=== PATIENT | female | born 1945 | race Hispanic/Latino ===

== ENCOUNTER 2017-04-21 10:46 | Outpatient (CLI) | payer MEDICARE ==
--- NOTE | 2017-04-21 14:18 | Mammography Report ---
BILATERAL DIGITAL SCREENING MAMMOGRAM with CAD: 04/21/17 10:46:00 CLINICAL: Baseline screening. FINDINGS: There are bilateral scattered areas of fibroglandular density.No mass, architectural distortion or suspicious calcifications. IMPRESSION: No mammographic evidence of malignancy. BI-RADS CATEGORY: 1 -- Negative RECOMMENDATION: Routine mammographic screening in one year. COMMENT: Patient follow-up letters are generated by our [employer] application.
== END 2017-04-21 10:47 | disposition home or self-care (01) ==
LOC: SPVWC 10:46
PROVIDERS: ATTEND Internal Medicine
DX: Z12.31 Encounter for screening mammogram for malignant neoplasm of breast (principal)
CPT/HCPCS: 77067; G0202

== ENCOUNTER 2018-03-17 07:18 | Outpatient (CLI) | payer MEDICARE ==
--- NOTE | 2018-03-17 09:04 | Cat Scan Report ---
CT CHEST WITHOUT CONTRAST INDICATION: History of pulmonary embolism. COMPARISON: None similar. FINDINGS: Noncontrast chest CT suggests normal heart size. No effusions. Few atherosclerotic coronary and aortic calcifications. No aortic aneurysm. Assessment of the great vessels and for detecting subtle lymphadenopathy limited due to lack of IV contrast. Few small right paratracheal lymph nodes measure up to 0.8 cm. No definite significant axillary lymphadenopathy. Patent central airway. Normal imaged thyroid. Tiny, 2 mm right lower lobe calcified granuloma, axial image 90. Minimal right upper lobe scarring. Few small bilateral upper lobe peripheral emphysematous bullae anteriorly, axial image 31. Mild nonspecific distal esophageal wall prominence/thickening, not excluded for gastroesophageal reflux and/or hiatal hernia, amongst others. Bilateral renal cysts, approximately 3.6 cm on the left posteromedially and 0.8 cm at the right upper renal pole. Numerous small pancreatic head calcifications. Couple of small hepatic calcified granulomas. Demineralized bones with mild multilevel spinal degenerative spurring. CONCLUSION: No acute chest CT abnormality on this limited, unenhanced exam with various incidental findings as old healed granulomatous disease, atherosclerotic calcifications, bilateral renal cysts and chronic pancreatitis, amongst others, as detailed above. Please also correlate clinically and note that pulmonary embolism evaluation is suboptimal without IV contrast. Thank you for the opportunity to participate in this patient's care.
--- NOTE | 2018-03-17 17:12 | Magnetic Resonance Report ---
FINAL REPORT EXAM: MR LUMBAR SPINE WO CON HISTORY: LOW BACK PAIN/POSTPROCEDURAL ACUTE CHRONIC KIDNEY FAILURE TECHNIQUE: MRI examination of the lumbar spine without IV contrast PRIORS: None. FINDINGS: Numbering for this exam assumes that there are 5 non-rib bearing lumbar vertebral bodies. Recommend correlation with lumbar x-rays to ensure accurate vertebral numbering prior to consideration of surgery or other lumbar intervention in this patient. Simple appearing bilateral renal cysts. Benign-appearing perineural cyst at S2. Conus medullaris signal and position: Normal Marrow signal changes adjacent to the following disc levels, likely from degenerative disc disease: L4-5 Bone marrow edema: Slight adjacent to the L4-5 disc likely from active phase of degenerative disc disease Vertebral compression fracture: None Anterolisthesis: None Retrolisthesis: None Disc narrowing: L4-5 slight Diffuse disc bulge: L4-5 slight Focal disc protrusion: None Central canal stenosis: L2-3 slight, L3-4 minimal, L4-5 slight Lateral recess stenosis: L4-5 moderate bilateral, There is multilevel degenerative hypertrophic changes at the facet joints and vertebral endplates. Along with disc bulge, these contribute to neural foraminal stenosis. Right neural foraminal stenosis: L4-5 slight, L5-S1 minimal Left neural foraminal stenosis: L4-5 moderate, L5-S1 minimal IMPRESSION: Bone marrow edema adjacent to L5-S1 narrowed disc likely reflects active phase of degenerative disc disease L4-5 disc narrowing, diffuse disc bulge, central canal stenosis, lateral recess stenosis, and neural foraminal stenosis Slight central canal stenosis at L2-3 and L3-4 Minimal neural foraminal stenosis at L5-S1 bilaterally
== END 2018-03-17 07:19 | disposition home or self-care (01) ==
LOC: CT 07:18
PROVIDERS: ATTEND Internal Medicine
DX: M48.07 Spinal stenosis, lumbosacral region (principal); M46.04 Spinal enthesopathy, thoracic region; M51.36 Other intervertebral disc degeneration, lumbar region; M51.26 Other intervertebral disc displacement, lumbar region; I70.0 Atherosclerosis of aorta; J84.10 Pulmonary fibrosis, unspecified; J98.4 Other disorders of lung; J43.8 Other emphysema; N28.1 Cyst of kidney, acquired; K75.3 Granulomatous hepatitis, not elsewhere classified; M81.0 Age-related osteoporosis without current pathological fracture; N99.0 Postprocedural (acute) (chronic) kidney failure; G96.19 Other disorders of meninges, not elsewhere classified; Z86.711 Personal history of pulmonary embolism
CPT/HCPCS: 71250; 72148

== ENCOUNTER 2019-03-06 08:21 | Outpatient (CLI) | payer MEDICARE ==
[2019-03-06 10:17] LABS: Chol/HDL Ratio 3.14 %
== END 2019-03-06 08:22 | disposition home or self-care (01) ==
LOC: EDBD → LAB 08:21
PROVIDERS: ATTEND Internal Medicine
DX: E78.5 Hyperlipidemia, unspecified (principal); E03.0 Congenital hypothyroidism with diffuse goiter; I10 Essential (primary) hypertension; I26.99 Other pulmonary embolism without acute cor pulmonale; R73.09 Other abnormal glucose
CPT/HCPCS: 36415; 80061; 83036; 84132; 84443

== ENCOUNTER 2019-04-24 12:23 | Outpatient (CLI) | payer MEDICARE ==
--- NOTE | 2019-04-24 16:04 | Mammography Report ---
BILATERAL DIGITAL SCREENING MAMMOGRAM with CAD: 04/24/19 12:23:00 CLINICAL: Routine screening. COMPARISON:04/21/17 FINDINGS: The breasts are almost entirely fatty. No mass, architectural distortion or suspicious calcifications. IMPRESSION: No mammographic evidence of malignancy. BI-RADS CATEGORY: 1 - - Negative RECOMMENDATION: Routine mammographic screening in one year. COMMENT: Patient follow-up letters are generated by our [employer] application.
== END 2019-04-24 12:24 | disposition home or self-care (01) ==
LOC: MAMMO 12:23 → EDBD 12:23 → MAMMO 12:24
PROVIDERS: ATTEND Internal Medicine
DX: Z12.31 Encounter for screening mammogram for malignant neoplasm of breast (principal)
CPT/HCPCS: 77067

== ENCOUNTER 2019-06-19 08:11 | Outpatient (CLI) | payer MEDICARE ==
[2019-06-19 11:15] LABS: Chol/HDL Ratio 2.49 %
== END 2019-06-19 08:12 | disposition home or self-care (01) ==
LOC: LAB 08:11
PROVIDERS: ATTEND Internal Medicine
DX: E03.9 Hypothyroidism, unspecified (principal); E78.5 Hyperlipidemia, unspecified; R73.03 Prediabetes
CPT/HCPCS: 36415; 80061; 83036; 84443

== ENCOUNTER 2019-11-27 11:09 | Outpatient (CLI) | payer MEDICARE ==
[2019-11-27 11:08] LABS: Basophils # (Auto) 0.1 K/mm3 (0.0-0.1); Basophils % (Auto) 1.1 % (0.0-1.8); Eosinophils # (Auto) 0.1 K/mm3 (0.0-0.4); Eosinophils % (Auto) 2.1 % (0.0-4.3); Hematocrit 40.2 % (30.3-42.9); Hemoglobin 13.4 gm/dl (10.1-14.3); Lymphocytes # (Auto) 2.6 K/mm3 (1.2-5.4); Lymphocytes % (Auto) 44.9 % (13.4-35.0); Mean Corpuscular HGB Conc 33 % (30-34); Mean Corpuscular Volume 94 fl (79-97); Monocytes # (Auto) 0.4 K/mm3 (0.0-0.8); Monocytes % (Auto) 7.5 % (0.0-7.3); Platelet Count 283 K/mm3 (140-440); Red Blood Count 4.27 M/mm3 (3.65-5.03); Red Cell Distribution Width 13.9 % (13.2-15.2)
[2019-11-27 11:35] LABS: Albumin 4.4 g/dL (3.9-5); Calcium 9.7 mg/dL (8.4-10.2)
--- NOTE | 2019-11-27 12:37 | XRay Report ---
CLINICAL DATA: PAIN IN LEFT ELBOW TECHNICAL DATA: 4 views of the elbow were obtained, AP, lateral, obliques FINDINGS: There is no acute fracture or dislocation. There is visualization of the anterior humeral fat pad. Th is is no consistent with a joint effusion. The radial head articulates normally with the capitellum a nd the ulna articulates normally with the trochlea. No obvious fractures identified. IMPRESSION: 1. There is no convincing acute fracture detected at this time. Signer Name: Hebert Daigle MD Signed: 11/27/2019 12:33 PM Workstation Name: [id number]
[2019-11-27 16:25] LABS: Chol/HDL Ratio 2.74 %
== END 2019-11-27 11:10 | disposition home or self-care (01) ==
LOC: EDBD 11:09 → XRAY 11:09
PROVIDERS: ATTEND Internal Medicine
DX: M25.522 Pain in left elbow (principal); E78.5 Hyperlipidemia, unspecified; R73.03 Prediabetes; Z13.21 Encounter for screening for nutritional disorder; Z00.00 Encounter for general adult medical examination without abnormal findings; Z79.899 Other long term (current) drug therapy
CPT/HCPCS: 36415; 80053; 80061; 82607; 83036; 84443; 85025

== ENCOUNTER 2020-08-17 10:23 | Observation (INO) | payer MEDICARE ==
[2020-08-17] MEDS ORDERED: ONDANSETRON 4 MG/2 ML INJ IV ONE (10:57)
[2020-08-17] MEDS ORDERED: fentaNYL 100 MCG/2 ML INJ IV ONE (10:57)
[2020-08-17] MEDS ORDERED: NITROGLYCERIN 2% OINT 1 GM TP ONE (10:57)
--- NOTE | 2020-08-17 11:01 | Emergency Department Report ---
HPI - General Chief Complaint: Dyspnea/Respdistress Time Seen by Provider: 08/17/20 10:37 - HPI HPI: Room 21 The patient is a 75-year-old female present with a chief complaint of shortness of breath and chest pain. Patient states her shortness of breath began yesterday. Patient states she has had a cough productive of orange-colored sputum. The patient states last night she developed chest pressure feeling as though there was a week pushing on her chest. She states the chest pressure would come and go and was associated also with shortness of breath but denies nausea/vomiting or diaphoresis. Patient denies history of fever or known COVID positive patient contact. Patient currently gives her chest heaviness a score of 2/10. Patient states she had a normal stress test this year but her last cardiac catheterization occurred over 5 years ago. ED Past Medical Hx - Past Medical History Previous Medical History?: Yes Hx Pulmonary Embolism: Yes (2017) Hx COPD: Yes (No home O2) Additional medical history: Benign cyst to left kidney - Surgical History Past Surgical History?: Yes Additional Surgical History: Right ankle - Family History Family history: no significant - Social History Smoking Status: Current Every Day Smoker (1 pack/day) Substance Use Type: None (Denies illicit drug use) ED Review of Systems ROS: Stated complaint: NELI Other details as noted in HPI Constitutional: denies: diaphoresis, fever Respiratory: shortness of breath Cardiovascular: chest pain Endocrine: no symptoms reported Gastrointestinal: denies: nausea, vomiting Physical Exam - Physical Exam Vital Signs: Vital Signs 08/17/20 10:30 Pulse Rate 77 Respiratory 24 Rate O2 Sat by Pulse 96 Oximetry Physical Exam: GENERAL: The patient is well-developed well-nourished female sitting on stretcher occasionally coughing. [] HEENT: Normocephalic. Atraumatic. Extraocular motions are intact. Patient has moist mucous membranes. NECK: Supple. Trachea midline CHEST/LUNGS: Clear to auscultation. There is no respiratory distress noted. Occasional cough HEART/CARDIOVASCULAR: Regular. There is no tachycardia. There is no gallop rub or murmur. ABDOMEN: Abdomen is soft, nontender. Patient has normal bowel sounds. There is no abdominal distention. SKIN: There is no rash. There is no diaphoresis. NEURO: The patient is awake, alert, and oriented. The patient is cooperative. The patient has normal speech MUSCULOSKELETAL: There is no evidence of acute injury. ED Course Vital Signs 08/17/20 10:30 Pulse Rate 77 Respiratory 24 Rate O2 Sat by Pulse 96 Oximetry ED Medical Decision Making - Lab Data Result diagrams: 08/17/20 11:30 08/17/20 11:30 Laboratory Tests 08/17/20 08/17/20 08/17/20 11:30 11:30 11:30 WBC 10.8 RBC 3.97 Hgb 12.7 Hct 37.9 MCV 96 MCH 32 MCHC 34 RDW 13.8 Plt Count 269 Lymph % (Auto) 14.9 Cobb % (Auto) 7.1 Eos % (Auto) 0.8 Baso % (Auto) 0.4 Lymph # (Auto) 1.6 Cobb # (Auto) 0.8 Eos # (Auto) 0.1 Baso # (Auto) 0.0 Seg Neutrophils % 76.8 H Seg Neutrophils # 8.3 H PT 14.8 INR 1.15 H APTT 31.1 D-Dimer 244.05 H Sodium 141 Potassium 4.3 Chloride 104.3 Carbon Dioxide 25 Anion Gap 16 BUN 19 H Creatinine 1.1 Estimated GFR 48 BUN/Creatinine Ratio 17 Glucose 146 H Lactic Acid Calcium 8.8 Ferritin Total Bilirubin 0.20 AST 9 ALT 8 Alkaline Phosphatase 80 Lactate Dehydrogenase Total Creatine Kinase 88 CK-MB (CK-2) 2.0 CK-MB (CK-2) Rel Index 2.2 Troponin T < 0.010 C-Reactive Protein NT-Pro-B Natriuret Pep 259.5 Total Protein 6.4 Albumin 4.2 Albumin/Globulin Ratio 1.9 08/17/20 08/17/20 08/17/20 11:30 11:30 11:30 WBC RBC Hgb Hct MCV MCH MCHC RDW Plt Count Lymph % (Auto) Cobb % (Auto) Eos % (Auto) Baso % (Auto) Lymph # (Auto) Cobb # (Auto) Eos # (Auto) Baso # (Auto) Seg Neutrophils % Seg Neutrophils # PT INR APTT D-Dimer Sodium Potassium Chloride Carbon Dioxide Anion Gap BUN Creatinine Estimated GFR BUN/Creatinine Ratio Glucose Lactic Acid 2.30 H* Calcium Ferritin 20.1 Total Bilirubin AST ALT Alkaline Phosphatase Lactate Dehydrogenase 199 H Total Creatine Kinase CK-MB (CK-2) CK-MB (CK-2) Rel Index Troponin T C-Reactive Protein 0.70 NT-Pro-B Natriuret Pep Total Protein Albumin Albumin/Globulin Ratio - EKG Data -: EKG Interpreted by Me EKG shows normal: sinus rhythm Rate: normal - EKG Data When compared to previous EKG there are: previous EKG unavailable Interpretation: nonspecific ST-T wave dean (Biphasic T wave in V2) - Radiology Data Radiology results: report reviewed (Chest x-ray), image reviewed (Chest x-ray) interpreted by me: Chest x-ray-no focal infiltrates, no pneumothorax, no foreign body seen [facility] [address] [place] [address] XRay Report Signed Patient: JIM ZULUAGA MR#: [id number] 8 : 1945 Acct:[id number] Age/Sex: 75 / F ADM Date: 08/17/20 Loc: ED Attending Dr: Ordering Physician: DORETHA LAWSON MD Date of Service: 08/17/20 Procedure(s): XR chest 1V ap Accession Number(s): [id number] cc: DORETHA LAWSON MD Fluoro Time In Minutes: CHEST 1 VIEW 08/17/2020 10:22 AM INDICATION / CLINICAL INFORMATION: chest pain, cough. COMPARISON: CT chest dated 03/17/2018. FINDINGS: SUPPORT DEVICES: None. HEART / MEDIASTINUM: No significant abnormality. LUNGS / PLEURA: No significant pulmonary or pleural abnormality. No pneumothorax. ADDITIONAL FINDINGS: No significant additional findings. IMPRESSION: No acute cardiopulmonary abnormality. Signer Name: Pravin Mora MD Signed: 08/17/2020 11:06 AM Workstation Name: [id number] Transcribed By: SS Dictated By: PRAVIN MORA Electronically Authenticated By: PRAVIN MORA Signed Date/Time: 08/17/20 110 DD/ 110 TD/TT: - Differential Diagnosis ACS, pericarditis, GERD, COPD exacerbation, COVID-19, bronchitis Critical care attestation.: If time is entered above; I have spent that time in minutes in the direct care of this critically ill patient, excluding procedure time. ED Disposition Clinical Impression: Chest pressure, Cough, Shortness of breath Disposition: OP ADMIT IP TO THIS HOSP Is pt being admited?: Yes Does the pt Need Aspirin: No Condition: Fair Time of Disposition: 12:40 (Hospitalist paged)
--- NOTE | 2020-08-17 11:11 | XRay Report ---
CHEST 1 VIEW 08/17/2020 10:22 AM INDICATION / CLINICAL INFORMATION: chest pain, cough. COMPARISON: CT chest dated 03/17/2018. FINDINGS: SUPPORT DEVICES: None. HEART / MEDIASTINUM: No significant abnormality. LUNGS / PLEURA: No significant pulmonary or pleural abnormality. No pneumothorax. ADDITIONAL FINDINGS: No significant additional findings. IMPRESSION: No acute cardiopulmonary abnormality. Signer Name: Gucci Mora MD Signed: 08/17/2020 11:06 AM Workstation Name: [id number]
[2020-08-17 11:47] LABS: Basophils % (Auto) 0.4 % (0.0-1.8); Eosinophils # (Auto) 0.1 K/mm3 (0.0-0.4); Eosinophils % (Auto) 0.8 % (0.0-4.3); Hematocrit 37.9 % (30.3-42.9); Hemoglobin 12.7 gm/dl (10.1-14.3); Lymphocytes # (Auto) 1.6 K/mm3 (1.2-5.4); Lymphocytes % (Auto) 14.9 % (13.4-35.0); Mean Corpuscular HGB Conc 34 % (30-34); Mean Corpuscular Volume 96 fl (79-97); Monocytes # (Auto) 0.8 K/mm3 (0.0-0.8); Monocytes % (Auto) 7.1 % (0.0-7.3); Platelet Count 269 K/mm3 (140-440); Red Blood Count 3.97 M/mm3 (3.65-5.03); Red Cell Distribution Width 13.8 % (13.2-15.2)
[2020-08-17 12:03] LABS: INR 1.15 (0.87-1.13)
[2020-08-17 12:04] LABS: Partial Thromboplastin Time 31.1 Sec. (24.2-36.6)
[2020-08-17 12:15] LABS: C-Reactive Protein 0.7 mg/dL (0.00-1.30)
[2020-08-17 12:16] LABS: Alanine Aminotransferase 8 units/L (7-56); Albumin 4.2 g/dL (3.9-5); BUN/Creatinine Ratio 17; Blood Urea Nitrogen 19 mg/dL (7-17); Calcium 8.8 mg/dL (8.4-10.2); Hemolysis Index 1
--- NOTE | 2020-08-17 16:29 | History and Physical Report ---
History of Present Illness Date of examination: 08/17/20 Date of admission: 08/17/20 13:00 Chief complaint: Shortness of breath History of present illness: 75-year-old female with a medical history of PE on xarelto, Hypothyroidism presenting to the ED with a chief complaint of shortness of breath and chest pain. Her shortness of breath began yesterday. Patient states she has had a cough productive of orange-colored sputum. The patient states last night she developed chest pressure. She states the chest pressure would come and go and was associated also with shortness of breath but denies nausea/vomiting or diaphoresis. Patient denies history of fever or known COVID positive patient contact. Patient states she had a normal stress test this year but her last cardiac catheterization occurred over 5 years ago. Past History Past Medical History: hypothyroidism, pulmonary embolism Medications and Allergies Allergies Allergy/AdvReac Type Severity Reaction Status Date / Time aspirin [From Norgesic] Allergy Hives Verified 08/17/20 11:04 caffeine [From Norgesic] Allergy Hives Verified 08/17/20 11:04 codeine Allergy Unknown Verified 08/17/20 11:04 magnesium Allergy UPSET Verified 08/17/20 11:04 STOMACH orphenadrine [From Norgesic] Allergy Hives Verified 08/17/20 11:04 Home Medications Medication Instructions Recorded Confirmed Last Taken Type Levothyroxine [Synthroid] 50 mcg PO QAM 08/17/20 08/17/20 Unknown History Nitroglycerin [Nitrostat] 0.4 mg SL Q5M PRN 08/17/20 08/17/20 Unknown History Pantoprazole [Protonix] 40 mg PO QDAY 08/17/20 08/17/20 Unknown History Rivaroxaban [Xarelto] 20 mg PO QDAY 08/17/20 08/17/20 Unknown History Rosuvastatin Calcium 10 mg PO DAILY 08/17/20 08/17/20 Unknown History Exam - Constitutional Vitals: Temp Pulse Resp BP Pulse Ox 71 17 133/52 95 08/17/20 14:00 08/17/20 14:00 08/17/20 14:00 08/17/20 14:00 General appearance: Present: no acute distress, well-nourished - EENT Eyes: Present: PERRL ENT: hearing intact, clear oral mucosa - Neck Neck: Present: supple, normal ROM - Respiratory Respiratory effort: normal Respiratory: bilateral: CTA - Cardiovascular Heart Sounds: Present: S1 & S2. Absent: rub, click - Extremities Extremities: pulses symmetrical, No edema Peripheral Pulses: within normal limits - Abdominal General gastrointestinal: Present: soft, non-tender, non-distended, normal bowel sounds Female genitourinary: Present: normal - Integumentary Integumentary: Present: clear, warm, dry - Musculoskeletal Musculoskeletal: gait normal, strength equal bilaterally - Psychiatric Psychiatric: appropriate mood/affect, intact judgment & insight - Neurologic Neurologic: CNII-XII intact, moves all extremities HEART Score - HEART Score Troponin: Troponin T < 0.010 ng/mL (0.00-0.029) 08/17/20 11:30 Results - Labs CBC & Chem 7: 08/17/20 11:30 08/17/20 11:30 Labs: Laboratory Last Values WBC 10.8 K/mm3 (4.5-11.0) 08/17/20 11:30 RBC 3.97 M/mm3 (3.65-5.03) 08/17/20 11:30 Hgb 12.7 gm/dl (10.1-14.3) 08/17/20 11:30 Hct 37.9 % (30.3-42.9) 08/17/20 11:30 MCV 96 fl (79-97) 08/17/20 11:30 MCH 32 pg (28-32) 08/17/20 11:30 MCHC 34 % (30-34) 08/17/20 11:30 RDW 13.8 % (13.2-15.2) 08/17/20 11:30 Plt Count 269 K/mm3 (140-440) 08/17/20 11:30 Lymph % (Auto) 14.9 % (13.4-35.0) 08/17/20 11:30 [place] % (Auto) 7.1 % (0.0-7.3) 08/17/20 11:30 Eos % (Auto) 0.8 % (0.0-4.3) 08/17/20 11:30 Baso % (Auto) 0.4 % (0.0-1.8) 08/17/20 11:30 Lymph # (Auto) 1.6 K/mm3 (1.2-5.4) 08/17/20 11:30 [place] # (Auto) 0.8 K/mm3 (0.0-0.8) 08/17/20 11:30 Eos # (Auto) 0.1 K/mm3 (0.0-0.4) 08/17/20 11:30 Baso # (Auto) 0.0 K/mm3 (0.0-0.1) 08/17/20 11:30 Seg Neutrophils % 76.8 % (40.0-70.0) H 08/17/20 11:30 Seg Neutrophils # 8.3 K/mm3 (1.8-7.7) H 08/17/20 11:30 PT 14.8 Sec. (12.2-14.9) 08/17/20 11:30 INR 1.15 (0.87-1.13) H 08/17/20 11:30 APTT 31.1 Sec. (24.2-36.6) 08/17/20 11:30 D-Dimer 244.05 ng/mlDDU (0-234) H 08/17/20 11:30 Sodium 141 mmol/L (137-145) 08/17/20 11:30 Potassium 4.3 mmol/L (3.6-5.0) 08/17/20 11:30 Chloride 104.3 mmol/L (98-107) 08/17/20 11:30 Carbon Dioxide 25 mmol/L (22-30) 08/17/20 11:30 Anion Gap 16 mmol/L 08/17/20 11:30 BUN 19 mg/dL (7-17) H 08/17/20 11:30 Creatinine 1.1 mg/dL (0.6-1.2) 08/17/20 11:30 Estimated GFR 48 ml/min 08/17/20 11:30 BUN/Creatinine Ratio 17 % 08/17/20 11:30 Glucose 146 mg/dL (65-100) H 08/17/20 11:30 Lactic Acid 2.30 mmol/L (0.7-2.0) H* 08/17/20 11:30 Calcium 8.8 mg/dL (8.4-10.2) 08/17/20 11:30 Ferritin 20.1 ng/mL (10.0-200.0) 08/17/20 11:30 Total Bilirubin 0.20 mg/dL (0.1-1.2) 08/17/20 11:30 AST 9 units/L (5-40) 08/17/20 11:30 ALT 8 units/L (7-56) 08/17/20 11:30 Alkaline Phosphatase 80 units/L (35-129) 08/17/20 11:30 Lactate Dehydrogenase 199 units/L (91-180) H 08/17/20 11:30 Total Creatine Kinase 88 units/L (30-135) 08/17/20 11:30 CK-MB (CK-2) 2.0 ng/mL (0.0-4.0) 08/17/20 11:30 CK-MB (CK-2) Rel Index 2.2 (0-4) 08/17/20 11:30 Troponin T < 0.010 ng/mL (0.00-0.029) 08/17/20 11:30 C-Reactive Protein 0.70 mg/dL (0.00-1.30) 08/17/20 11:30 NT-Pro-B Natriuret Pep 259.5 pg/mL (0-900) 08/17/20 11:30 Total Protein 6.4 g/dL (6.3-8.2) 08/17/20 11:30 Albumin 4.2 g/dL (3.9-5) 08/17/20 11:30 Albumin/Globulin Ratio 1.9 % 08/17/20 11:30 Procalcitonin < 0.05 ng/mL (<0.15) 08/17/20 11:30 Microbiology: Microbiology 08/17/20 11:30 Peripheral/Venous Blood Culture - Preliminary Culture in Progress 08/17/20 11:30 Peripheral/Venous Blood Culture - Preliminary Culture in Progress Carter/IV: IV Catheter Type [Left Hand] Peripheral IV Assessment and Plan - Patient Problems (1) Chest pressure Current Visit: Yes Status: Acute Plan to address problem: EKG is normal sinus rhythm with some T changes Troponin x1 negative Trend troponin Lexiscan tomorrow AM NPO after MN (2) Shortness of breath Current Visit: Yes Status: Acute Plan to address problem: Has no audible wheeze on exam Chest xray is also negative. Her ddimer is elevated. She has been on xarelto for a long time and denies any medication noncompliance. She will need to have CTA chest and US doppler LE. Switch xarelto to heparin drip for now Need to send COVID-19 test. Start dexamethasone 6 mg IV daily (3) Suspected 2019-nCoV infection Current Visit: Yes Status: Acute Plan to address problem: Dexamethasone COVID 19 test. Procalcitonin is negative. ID consult if positive (4) Lactic acid acidosis Current Visit: Yes Status: Acute Plan to address problem: Likely type B Repeat lactic acidi (5) DVT prophylaxis Current Visit: Yes Status: Acute Plan to address problem: Heparin drip
[2020-08-17] MEDS ORDERED: ONDANSETRON 4 MG/2 ML INJ IV PRN (16:41)
[2020-08-17] MEDS ORDERED: ACETAMINOPHEN 325 MG TAB PO PRN (16:41)
[2020-08-17] MEDS ORDERED: HEPARIN/ 0.45% NACL DRIP 25,000 UNIT/500 ML BAG IV SCH (17:00)
[2020-08-17 17:34] LABS: Hematocrit 36.2 % (30.3-42.9); Hemoglobin 12.5 gm/dl (10.1-14.3)
[2020-08-17 17:44] LABS: INR 1.02 (0.87-1.13)
[2020-08-17 17:45] LABS: Partial Thromboplastin Time 28.7 Sec. (24.2-36.6)
--- NOTE | 2020-08-17 23:37 | Cat Scan Report ---
CTA CHEST WITH IV CONTRAST INDICATION: Shortness of breath. TECHNIQUE: Axial CT images were obtained through the chest after injection of IV contrast. 3 plane MIP reconstru ctions were produced. All CT scans at this location are performed using CT dose reduction for ALARA b y means of automated exposure control. COMPARISON: CT chest 03/17/2018. FINDINGS: Pulmonary Arteries: No pulmonary emboli. Thoracic Aorta: No acute abnormality. Heart: Normal. Lungs: No acute air space or interstitial disease. Pleura: No pleural effusion. No pneumothorax. Lymph Nodes: No significant adenopathy. Additional Findings: None. Upper Abdomen: No acute findings. Skeletal Structures: No significant osseous abnormality. IMPRESSION: 1. No CT evidence for pulmonary embolism. 2. No acute findings. Signer Name: Nadeem Akers MD Signed: 08/17/2020 11:32 PM Workstation Name: [id number]
[2020-08-18 06:43] LABS: Basophils % (Auto) 0.2 % (0.0-1.8); Hematocrit 34.4 % (30.3-42.9); Hemoglobin 11.3 gm/dl (10.1-14.3); Lymphocytes # (Auto) 1.7 K/mm3 (1.2-5.4); Lymphocytes % (Auto) 11.1 % (13.4-35.0); Mean Corpuscular HGB Conc 33 % (30-34); Mean Corpuscular Volume 94 fl (79-97); Monocytes # (Auto) 1.3 K/mm3 (0.0-0.8); Monocytes % (Auto) 8.2 % (0.0-7.3); Platelet Count 270 K/mm3 (140-440); Red Blood Count 3.67 M/mm3 (3.65-5.03); Red Cell Distribution Width 13.4 % (13.2-15.2)
[2020-08-18] MEDS: LEVOTHYROXINE 50 MCG TAB PO SCH (09:17)
[2020-08-18] MEDS ORDERED: dexAMETHasone 4 MG/ML VIAL IV SCH (10:00)
--- NOTE | 2020-08-18 10:54 | Consultation ---
History of Present Illness Consult date: 08/18/20 Consult reason: chest pain History of present illness: This is a 75-year old woman who was brought to this hospital with shortness of breath and coughs. She is currently on isolation protocol and is undergoing further evaluation for coronavirus infection. A cardiac consultation has been requested for chest pain. Patient describes chest pain with deep inspirations and coughs. Chest x-ray is negative and a chest CTA reports low probability for PE. Her ECG is normal sinus rhythm. Patient has a cardiac history of paroxysmal atrial fibrillation and takes Xarelto for oral anticoagulation. In 2012 she underwent a cardiac cath that shows no significant coronary artery disease. Early this year she had a normal perfusion thallium stress test, normal left ventricular ejection fraction of 60% by echocardiogram. Past History Past Medical History: atrial fib, hypothyroidism Medications and Allergies Allergies Allergy/AdvReac Type Severity Reaction Status Date / Time aspirin [From Norgesic] Allergy Hives Verified 08/17/20 16:45 caffeine [From Norgesic] Allergy Hives Verified 08/17/20 16:45 codeine Allergy Unknown Verified 08/17/20 16:45 magnesium Allergy UPSET Verified 08/17/20 16:45 STOMACH orphenadrine [From Norgesic] Allergy Hives Verified 08/17/20 16:45 Home Medications Medication Instructions Recorded Confirmed Last Taken Type Levothyroxine [Synthroid] 50 mcg PO QAM 08/17/20 08/17/20 Unknown History Nitroglycerin [Nitrostat] 0.4 mg SL Q5M PRN 08/17/20 08/17/20 Unknown History Pantoprazole [Protonix] 40 mg PO QDAY 08/17/20 08/17/20 Unknown History Rivaroxaban [Xarelto] 20 mg PO QDAY 08/17/20 08/17/20 Unknown History Rosuvastatin Calcium 10 mg PO DAILY 08/17/20 08/17/20 Unknown History Active Meds: Active Medications Acetaminophen (Tylenol) 650 mg PO Q4H PRN PRN Reason: Pain MILD(1-3)/Fever >100.5/TRIPATHI Dexamethasone (Decadron) 6 mg IV DAILY AGUSTINA Last Admin: 08/18/20 09:17 Dose: 6 mg Documented by: Heparin Sodium/Sodium Chloride (Heparin/ 0.45% Nacl-25,000 Unit/500 Ml) 25,000 unit in 500 mls @ 26 mls/hr IV TITR AGUSTINA; Protocol Last Titration: 08/18/20 07:18 Dose: 1,300 units/hr, 26 mls/hr Documented by: Levothyroxine Sodium (Synthroid) 50 mcg PO QAM [facility] Last Admin: 08/18/20 09:17 Dose: 50 mcg Documented by: Ondansetron HCl (Zofran) 4 mg IV Q8H PRN PRN Reason: Nausea And Vomiting Sodium Chloride (Sodium Chloride Flush Syringe 10 Ml) 10 ml IV BID AGUSTINA Last Admin: 08/18/20 09:18 Dose: 10 ml Documented by: Sodium Chloride (Sodium Chloride Flush Syringe 10 Ml) 10 ml IV PRN PRN PRN Reason: LINE FLUSH Physical Examination Vital Signs Pulse Resp Pulse Ox 77 24 96 08/17/20 10:30 08/17/20 10:30 08/17/20 10:30 Narrative exam: Deferred due to isolation protocol. General appearance: no acute distress Cardiac: Positive: Reg Rate and Rhythm Results 08/18/20 06:23 08/18/20 06:23 Cardiac Enzymes 08/17/20 08/17/20 Range/Units 11:30 11:30 AST 9 (5-40) units/L Lactate Dehydrogenase 199 H (91-180) units/L CK-MB (CK-2) 2.0 (0.0-4.0) ng/mL Coagulation 08/17/20 08/17/20 Range/Units 11:30 16:59 PT 14.8 13.5 (12.2-14.9) Sec. INR 1.15 H 1.02 (0.87-1.13) APTT 31.1 28.7 (24.2-36.6) Sec. CBC 08/17/20 08/17/20 08/18/20 Range/Units 11:30 16:59 06:23 WBC 10.8 15.5 H (4.5-11.0) K/mm3 RBC 3.97 3.67 (3.65-5.03) M/mm3 Hgb 12.7 12.5 11.3 (10.1-14.3) gm/dl Hct 37.9 36.2 34.4 (30.3-42.9) % Plt Count 269 290 270 (140-440) K/mm3 Lymph # (Auto) 1.6 1.7 (1.2-5.4) K/mm3 [place] # (Auto) 0.8 1.3 H (0.0-0.8) K/mm3 Eos # (Auto) 0.1 0.0 (0.0-0.4) K/mm3 Baso # (Auto) 0.0 0.0 (0.0-0.1) K/mm3 Comprehensive Metabolic Panel 08/17/20 08/18/20 Range/Units 11:30 06:23 Sodium 141 140 (137-145) mmol/L Potassium 4.3 4.7 (3.6-5.0) mmol/L Chloride 104.3 106.0 (98-107) mmol/L Carbon Dioxide 25 (22-30) mmol/L BUN 19 H (7-17) mg/dL Creatinine 1.1 (0.6-1.2) mg/dL Glucose 146 H (65-100) mg/dL Calcium 8.8 (8.4-10.2) mg/dL AST 9 (5-40) units/L ALT 8 (7-56) units/L Alkaline Phosphatase 80 (35-129) units/L Total Protein 6.4 (6.3-8.2) g/dL Albumin 4.2 4.0 (3.9-5) g/dL Assessment and Plan Shortness of breath and coughs Atypical chest pain Normal perfusion thallium stress test 11/2019 Normal left ventricular ejection fraction of 60% by echocardiogram 11/2019 [facility]: no significant coronary artery disease. Paroxysmal Atrial fibrillation on Xarelto for anticoagulation Thyroid disease Recommendations: Continue medical therapy for paroxysmal atrial fibrillation. Consider pulmonary evaluation for shortness of breath and coughs. Otherwise, conservative cardiac management.
--- NOTE | 2020-08-18 10:56 | Progress Note ---
Assessment and Plan - Patient Problems (1) Chest pressure Current Visit: Yes Status: Acute Plan to address problem: EKG is normal sinus rhythm with some T changes Troponin x1 negative Had a negative stress test early 2019. Cardiology consulted. Possible stress test tomorrow (2) Shortness of breath Current Visit: Yes Status: Acute Plan to address problem: Has no audible wheeze on exam Chest xray is also negative. Her ddimer is elevated but CTA chest is negative. Resume xarelot Awaiting COVID-19 test Start dexamethasone 6 mg IV daily (3) Suspected 2019-nCoV infection Current Visit: Yes Status: Acute Plan to address problem: Continue Dexamethasone for now. Her breathing is better COVID 19 test. Procalcitonin is negative. (4) Lactic acid acidosis Current Visit: Yes Status: Resolved Plan to address problem: Resolved (5) DVT prophylaxis Current Visit: Yes Status: Acute Plan to address problem: On xarelto History Interval history: She states she feels better. Chest pain has resolved Her CTA chest showed no PE Heparin switched to xarelto Awaiting COVID-19 test. Consulted cardiology to determine if stress test is necessary Hospitalist Physical - Constitutional Vitals: Temp Pulse Resp BP Pulse Ox 98.5 F 114 H 20 128/54 92 08/18/20 04:20 08/18/20 04:31 08/18/20 04:31 08/18/20 04:31 08/18/20 04:31 General appearance: Present: no acute distress, well-nourished - EENT Eyes: Present: PERRL - Respiratory Respiratory: bilateral: CTA - Cardiovascular Heart Sounds: Present: S1 & S2 - Extremities Extremities: No edema - Abdominal General gastrointestinal: soft, non-tender, non-distended, normal bowel sounds - Psychiatric Psychiatric: appropriate mood/affect - Neurologic Neurologic: CNII-XII intact HEART Score - HEART Score Troponin: Troponin T < 0.010 ng/mL (0.00-0.029) 08/17/20 11:30 Results - Labs CBC & Chem 7: 08/18/20 06:23 08/18/20 06:23 Labs: Laboratory Last Values WBC 15.5 K/mm3 (4.5-11.0) H 08/18/20 06:23 RBC 3.67 M/mm3 (3.65-5.03) 08/18/20 06:23 Hgb 11.3 gm/dl (10.1-14.3) 08/18/20 06:23 Hct 34.4 % (30.3-42.9) 08/18/20 06:23 MCV 94 fl (79-97) 08/18/20 06:23 MCH 31 pg (28-32) 08/18/20 06:23 MCHC 33 % (30-34) 08/18/20 06:23 RDW 13.4 % (13.2-15.2) 08/18/20 06:23 Plt Count 270 K/mm3 (140-440) 08/18/20 06:23 Lymph % (Auto) 11.1 % (13.4-35.0) L 08/18/20 06:23 Haakon % (Auto) 8.2 % (0.0-7.3) H 08/18/20 06:23 Eos % (Auto) 0.0 % (0.0-4.3) 08/18/20 06:23 Baso % (Auto) 0.2 % (0.0-1.8) 08/18/20 06:23 Lymph # (Auto) 1.7 K/mm3 (1.2-5.4) 08/18/20 06:23 Haakon # (Auto) 1.3 K/mm3 (0.0-0.8) H 08/18/20 06:23 Eos # (Auto) 0.0 K/mm3 (0.0-0.4) 08/18/20 06:23 Baso # (Auto) 0.0 K/mm3 (0.0-0.1) 08/18/20 06:23 Seg Neutrophils % 80.5 % (40.0-70.0) H 08/18/20 06:23 Seg Neutrophils # 12.5 K/mm3 (1.8-7.7) H 08/18/20 06:23 PT 13.5 Sec. (12.2-14.9) 08/17/20 16:59 INR 1.02 (0.87-1.13) 08/17/20 16:59 APTT 28.7 Sec. (24.2-36.6) 08/17/20 16:59 D-Dimer 244.05 ng/mlDDU (0-234) H 08/17/20 11:30 Heparin Anti-Xa Level 0.67 U.I./ml (0.3-0.7) 08/18/20 06:23 Sodium 140 mmol/L (137-145) 08/18/20 06:23 Potassium 4.7 mmol/L (3.6-5.0) 08/18/20 06:23 Chloride 106.0 mmol/L (98-107) 08/18/20 06:23 Carbon Dioxide 25 mmol/L (22-30) 08/17/20 11:30 Anion Gap 16 mmol/L 08/17/20 11:30 BUN 19 mg/dL (7-17) H 08/17/20 11:30 Creatinine 1.1 mg/dL (0.6-1.2) 08/17/20 11:30 Estimated GFR 48 ml/min 08/17/20 11:30 BUN/Creatinine Ratio 17 % 08/17/20 11:30 Glucose 146 mg/dL (65-100) H 08/17/20 11:30 Lactic Acid 1.10 mmol/L (0.7-2.0) 08/18/20 00:36 Calcium 8.8 mg/dL (8.4-10.2) 08/17/20 11:30 Ferritin 20.1 ng/mL (10.0-200.0) 08/17/20 11:30 Total Bilirubin 0.20 mg/dL (0.1-1.2) 08/17/20 11:30 AST 9 units/L (5-40) 08/17/20 11:30 ALT 8 units/L (7-56) 08/17/20 11:30 Alkaline Phosphatase 80 units/L (35-129) 08/17/20 11:30 Lactate Dehydrogenase 199 units/L (91-180) H 08/17/20 11:30 Total Creatine Kinase 88 units/L (30-135) 08/17/20 11:30 CK-MB (CK-2) 2.0 ng/mL (0.0-4.0) 08/17/20 11:30 CK-MB (CK-2) Rel Index 2.2 (0-4) 08/17/20 11:30 Troponin T < 0.010 ng/mL (0.00-0.029) 08/17/20 11:30 C-Reactive Protein 0.70 mg/dL (0.00-1.30) 08/17/20 11:30 NT-Pro-B Natriuret Pep 259.5 pg/mL (0-900) 08/17/20 11:30 Total Protein 6.4 g/dL (6.3-8.2) 08/17/20 11:30 Albumin 4.0 g/dL (3.9-5) 08/18/20 06:23 Albumin/Globulin Ratio 1.9 % 08/17/20 11:30 Procalcitonin < 0.05 ng/mL (<0.15) 08/17/20 11:30 Microbiology: Microbiology 08/17/20 11:30 Peripheral/Venous Blood Culture - Preliminary Culture in Progress 08/17/20 11:30 Peripheral/Venous Blood Culture - Preliminary Culture in Progress Carter/IV: Voiding Method Toilet IV Catheter Type [Left Hand] Peripheral IV Active Medications - Current Medications Current Medications: Generic Name Dose Route Start Last Admin Trade Name Freq PRN Reason Stop Dose Admin Acetaminophen 650 mg 08/17/20 16:41 Tylenol PO Q4H PRN Pain MILD(1-3)/Fever >100.5/TRIPATHI Dexamethasone 6 mg 08/18/20 10:00 08/18/20 09:17 Decadron IV 6 mg DAILY AGUSTINA Administration Heparin Sodium/Sodium Chloride 25,000 unit in 500 mls @ 26 mls/hr 08/17/20 17:00 08/18/20 07:18 Heparin/ 0.45% Nacl-25,000 Unit/500 Ml IV 1,300 units/hr TITR AGUSTINA 26 mls/hr Titration Protocol 1,300 UNITS/HR Levothyroxine Sodium 50 mcg 08/18/20 10:00 08/18/20 09:17 Synthroid PO 50 mcg QAM AGUSTINA Administration Ondansetron HCl 4 mg 08/17/20 16:41 Zofran IV Q8H PRN Nausea And Vomiting Sodium Chloride 10 ml 08/17/20 22:00 08/18/20 09:18 Sodium Chloride Flush Syringe 10 Ml IV 10 ml BID AGUSTINA Administration Sodium Chloride 10 ml 08/17/20 16:41 Sodium Chloride Flush Syringe 10 Ml IV PRN PRN LINE FLUSH
[2020-08-18 12:59] LABS: Calcium 8.6 mg/dL (8.4-10.2)
[2020-08-18] MEDS: RIVAROXABAN 20 MG TAB PO SCH (15:11)
[2020-08-18] MEDS: ALBUTEROL 2.5 MG/3 ML NEBU IH SCH ×2 (18:17→21:01)
[2020-08-19] MEDS: ALBUTEROL 2.5 MG/3 ML NEBU IH SCH ×2 (02:44→08:35)
[2020-08-19 06:24] LABS: Hematocrit 33.4 % (30.3-42.9); Lymphocytes # (Auto) 2.3 K/mm3 (1.2-5.4); Lymphocytes % (Auto) 16.7 % (13.4-35.0); Mean Corpuscular HGB Conc 33 % (30-34); Mean Corpuscular Volume 96 fl (79-97); Monocytes # (Auto) 1.1 K/mm3 (0.0-0.8); Monocytes % (Auto) 7.9 % (0.0-7.3); Platelet Count 252 K/mm3 (140-440); Red Blood Count 3.47 M/mm3 (3.65-5.03); Red Cell Distribution Width 13.7 % (13.2-15.2)
[2020-08-19 06:39] LABS: Albumin 3.9 g/dL (3.9-5); Calcium 8.8 mg/dL (8.4-10.2)
[2020-08-19] MEDS ORDERED: predniSONE 20 MG TAB PO SCH (10:00)
--- NOTE | 2020-08-19 10:08 | Discharge Summary ---
Providers - Providers Date of Admission: 08/17/20 13:00 Date of discharge: 08/19/20 Attending physician: FILEMON HE 08/18/20 09:21 Consult to Physician [CONS] Routine Comment: Consulting Provider: REGINO MORENO Physician Instructions: Reason For Exam: Chest pressure Primary care physician: DARREN ASTUDILLO MD Hospitalization Condition: Fair Hospital course: 75-year-old female with a medical history of PE on xarelto, Hypothyroidism presenting to the ED with a chief complaint of shortness of breath and chest pain. Her shortness of breath began yesterday. Patient states she has had a cough productive of orange-colored sputum. The patient states last night she developed chest pressure. She states the chest pressure would come and go and was associated also with shortness of breath but denies nausea/vomiting or diaphoresis. Patient denies history of fever or known COVID positive patient contact. Patient states she had a normal stress test this year but her last cardiac catheterization occurred over 5 years ago. Discharge diagnosis: COPD exacerbation, stable Respiratory distress with normal o2 sat, from COPD - resolved Atypical chest pain, likely from GERD -Normal perfusion thallium stress test 11/2019 - Normal left ventricular ejection fraction of 60% by echocardiogram 11/2019 - 2012 [facility]: no significant coronary artery disease. Paroxysmal Atrial fibrillation -on Xarelto for anticoagulation Hypothyroidism, continue Synthroid Tobacco abuse, counseled for cessation Disposition: [id number]/TX-06 HOME UNDER HOME HL Time spent for discharge: 34 minutes Exam - Physical Exam Narrative exam: General appearance: Present: no acute distress, well-nourished - EENT Eyes: Present: PERRL - Respiratory Respiratory: bilateral: CTA - Cardiovascular Heart Sounds: Present: S1 & S2 - Extremities Extremities: No edema - Abdominal General gastrointestinal: soft, non-tender, non-distended, normal bowel sounds - Psychiatric Psychiatric: appropriate mood/affect - Neurologic Neurologic: CNII-XII intact - Constitutional Vitals: Temp Pulse Resp BP Pulse Ox 97.0 F L 74 18 98/35 94 08/18/20 23:43 08/19/20 08:36 08/19/20 08:36 08/18/20 23:43 08/18/20 23:43 Plan Activity: advance as tolerated, fall precautions Weight Bearing Status: Non-Weight Bearing Diet: low fat, low salt Follow up with: PRIMARY CARE, [Primary Care Provider] - 7 Days ARELIS ARNOLD MD [Staff Physician] - 7 Days Prescriptions: predniSONE [Deltasone] 40 mg PO QDAY #5 tablet Albuterol Mdi (or & Nicu Only) [ProAir HFA Inhaler] 2 puff IH QID PRN #8.5 gram PRN Reason: Shortness Of Breath Azithromycin [Zithromax Z-SHANIA] 250 mg PO DAILY #6 tab
[2020-08-19] MEDS: RIVAROXABAN 20 MG TAB PO SCH (10:12)
[2020-08-19] MEDS: LEVOTHYROXINE 50 MCG TAB PO SCH (10:12)
--- NOTE | 2020-08-19 11:56 | Progress Note ---
Assessment and Plan COPD exacerbation Atypical chest pain Normal perfusion thallium stress test 11/2019 Normal left ventricular ejection fraction of 60% by echocardiogram 11/2019 [facility]: no significant coronary artery disease. Paroxysmal Atrial fibrillation on Xarelto for anticoagulation Thyroid disease Recommendations: Continue medical therapy for paroxysmal atrial fibrillation. Otherwise, conservative cardiac management. Subjective Date of service: 08/19/20 Interval history: Patient reports her breathing has improved and coughs are less. Objective Vital Signs Temp Pulse Pulse Resp Resp BP Pulse Ox 08/19/20 08:36 74 18 08/19/20 02:46 72 18 08/18/20 23:43 97.0 F L 65 16 98/35 94 08/18/20 21:04 68 18 08/18/20 16:47 98.5 F 76 20 120/54 90 - Physical Examination General: No Apparent Distress HEENT: Positive: PERRL Neck: Positive: trachea midline Cardiac: Positive: Reg Rate and Rhythm Lungs: Positive: Decreased Breath Sounds Neuro: Positive: Grossly Intact Extremities: Absent: edema - Labs and Meds Cardiac Enzymes 08/18/20 08/19/20 Range/Units 06:23 05:41 AST 9 16 (5-40) units/L CBC 08/19/20 Range/Units 05:41 WBC 13.7 H (4.5-11.0) K/mm3 RBC 3.47 L (3.65-5.03) M/mm3 Hgb 11.0 (10.1-14.3) gm/dl Hct 33.4 (30.3-42.9) % Plt Count 252 (140-440) K/mm3 Lymph # (Auto) 2.3 (1.2-5.4) K/mm3 Gonzales # (Auto) 1.1 H (0.0-0.8) K/mm3 Eos # (Auto) 0.0 (0.0-0.4) K/mm3 Baso # (Auto) 0.0 (0.0-0.1) K/mm3 Comprehensive Metabolic Panel 08/18/20 08/19/20 Range/Units 06:23 05:41 Sodium 141 (137-145) mmol/L Potassium 4.4 (3.6-5.0) mmol/L Chloride 105.4 (98-107) mmol/L Carbon Dioxide 21 L 22 (22-30) mmol/L BUN 26 H 31 H (7-17) mg/dL Creatinine 1.2 1.2 (0.6-1.2) mg/dL Glucose 109 H 112 H (65-100) mg/dL Calcium 8.6 8.8 (8.4-10.2) mg/dL AST 9 16 (5-40) units/L ALT 8 11 (7-56) units/L Alkaline Phosphatase 69 64 (35-129) units/L Total Protein 6.0 L 6.4 (6.3-8.2) g/dL Albumin 3.9 (3.9-5) g/dL
[2020-08-19 13:11] VITALS: BP 150/62
== END 2020-08-19 12:53 | disposition home health service (06) ==
LOC: ED 10:23 → 3A 13:00
PROVIDERS: ADMIT Internal Medicine; ATTEND Internal Medicine
DX: R07.89 Other chest pain (principal); Z20.828 Contact with and (suspected) exposure to other viral communicable diseases; I48.0 Paroxysmal atrial fibrillation; J44.9 Chronic obstructive pulmonary disease, unspecified; R06.02 Shortness of breath; R05 Cough; E87.2 Acidosis; E03.9 Hypothyroidism, unspecified; F17.210 Nicotine dependence, cigarettes, uncomplicated; N28.1 Cyst of kidney, acquired; Z98.890 Other specified postprocedural states; Z86.711 Personal history of pulmonary embolism; Z79.82 Long term (current) use of aspirin
CPT/HCPCS: 36415; 71045; 71275; 80053; 82140; 82550; 82553; 82728; 83615; 83880; 84145; 84484; 85014; 85018; 85025; 85049; 85379; 85520; 85610; 85730; 86140; 87040; 93005; 94640; 96365; 96375; 99285; 99406; G0378; J1100; J1644; J2405; J3010; Q9967; U0003

== ENCOUNTER 2021-10-20 11:39 | Outpatient (CLI) | payer MEDICARE ==
--- NOTE | 2021-10-20 13:21 | XRay Report ---
CHEST 2 VIEWS INDICATION / CLINICAL INFORMATION: Cough.. COMPARISON: 08/17/2020. FINDINGS: SUPPORT DEVICES: None. HEART / MEDIASTINUM: No significant abnormality. LUNGS / PLEURA: No significant pulmonary or pleural abnormality. No pneumothorax. ADDITIONAL FINDINGS: No significant additional findings. IMPRESSION: 1. No acute findings. Signer Name: Eduin York MD Signed: 10/20/2021 1:17 PM Workstation Name: [id number]
== END 2021-10-20 11:40 | disposition home or self-care (01) ==
LOC: XRAY 11:39
PROVIDERS: ATTEND Internal Medicine
DX: R05.9 Cough, unspecified (principal)
CPT/HCPCS: 71046